=== PATIENT | female | born 1965 | race Caucasian/White ===

== ENCOUNTER 2023-10-31 12:16 | Emergency (ER) | payer BC ==
[~2023-10-31] VITALS: Ht 167.6 cm; Wt 120.6 kg
[2023-10-31 13:01] LABS: BASOPHILS 0.1 % (0-2); HEMATOCRIT 40.4 % (35.0-50.0); HEMOGLOBIN 13.8 g/dL (12.0-18.0); LYMPHOCYTES 28.7 % (24-44); MCH 32.3 (27-36); MCHC 34.2 g/dl (30-36); MCV 94.4 fl (81-99); MONOCYTES 7.5 % (0-12); NEUTROPHILS 63.7 % (39-80); PLATELET COUNT 213 K/uL (140-440); RBC 4.27 M/ul (4.3-5.7); RDW 12.8 (10.5-15.0)
[2023-10-31] MEDS ORDERED: OMEPRAZOLE40 MG PO (13:07)
[2023-10-31] MEDS ORDERED: VITAMIN D21250 MCG PO (13:07)
[2023-10-31] MEDS ORDERED: SIMVASTATIN40 MG PO (13:07)
[2023-10-31] MEDS ORDERED: MELOXICAM15 MG PO (13:07)
[2023-10-31] MEDS ORDERED: FLUTICASONE PRO16 GM NAS (13:08)
[2023-10-31] MEDS ORDERED: FLUOXETINE HCL40 MG PO (13:08)
[2023-10-31] MEDS ORDERED: LAMOTRIGINE200 MG PO (13:08)
[2023-10-31] MEDS ORDERED: PROVIGIL200 MG PO (13:09)
[2023-10-31 13:10] LABS: ALBUMIN 3.7 g/dL (3.4-5.0); ALBUMIN/GLOBULIN RATIO 1.09 (1.1-2.4); ANION GAP 10.5 (7-21); BILIRUBIN, TOTAL 0.2 ng/dL (0.2-1.0); BUN/CREATININE RATIO 26.38 (6.0-28.6); CALCIUM 9.3 mg/dL (8.5-10.1); CREATININE, SERUM 0.72 mg/dL (0.55-1.02); POTASSIUM 3.5 mmol/L (3.5-5.1); PROTEIN, TOTAL 7.1 g/dL (6.4-8.2)
[2023-10-31] MEDS ORDERED: NALTREXONE (13:10)
[2023-10-31] MEDS ORDERED: N-ACETYL-L-CYS600 MG PO (13:10)
[2023-10-31] MEDS ORDERED: METHYL B PO (13:11)
[2023-10-31] MEDS ORDERED: CALCIUM500 MG PO (13:11)
[2023-10-31] MEDS ORDERED: L-METHYLFOLATE15 M1 PO (13:11)
[2023-10-31 16:58] VITALS: BP 113/61
== END 2023-10-31 16:59 | disposition home or self-care (01) ==
LOC: ED 12:16
PROVIDERS: Emergency Medicine
DX: R06.00 Dyspnea, unspecified (principal); E78.00 Pure hypercholesterolemia, unspecified; E03.9 Hypothyroidism, unspecified; K21.9 Gastro-esophageal reflux disease without esophagitis; Z79.51 Long term (current) use of inhaled steroids; Z79.899 Other long term (current) drug therapy; Z88.8 Allergy status to other drugs, medicaments and biological substances
CPT/HCPCS: 36415; 71046; 71260; 80053; 83880; 84484; 85025; 85379; 99284-25; Q9967